=== PATIENT | female | born 1985 | race Caucasian/White ===

== ENCOUNTER 2016-06-25 19:13 | Emergency (ER) | payer OTHER ==
[~2016-06-25] VITALS: Ht 167.6 cm; Wt 70.6 kg
[~2016-06-25 19:13] MED LIST: CALCARB 600 W-1 EACH PO; CALCIUM500 M4 PO; CLINDAMYCIN HC300 MG PO; ENDOCET 5-3251 EACH PO; FLAGYL500 MG PO; FLEXERIL10 MG PO; KEFLEX500 MG PO; LORTAB 5-325 M1 EACH PO; MELATONIN10 M1 PO; MOTRIN800 MG PO; Motrin PO; NAPROSYN500 MG PO; NO MEDS; NOHOMEMEDS; NORCO 5/3251 TABLET PO; PERCOCET 5/31 TABLET PO; PRENATAL COMPL1 EACH PO; TRAMADOL HCL50 MG PO; VITAMIN C1000 MG PO; ZOFRAN ODT4 MG PO
[2016-06-25] MEDS ORDERED: TRAMADOL HCL50 MG PO (21:27)
[2016-06-25 21:36] VITALS: BP 140/89
== END 2016-06-25 21:36 | disposition home or self-care (01) ==
LOC: EME 19:13
DX: S06.0X9A Concussion with loss of consciousness of unspecified duration, initial encounter (principal); S20.211A Contusion of right front wall of thorax, initial encounter; M54.2 Cervicalgia; Y08.89XA Assault by other specified means, initial encounter; Y07.03 Male partner, perpetrator of maltreatment and neglect; Z87.891 Personal history of nicotine dependence
CPT/HCPCS: 70450; 71020; 72040; 99281; 99283

== ENCOUNTER 2016-08-28 12:23 | Emergency (ER) | payer OTHER ==
[~2016-08-28] VITALS: Ht 167.6 cm; Wt 70.1 kg
[2016-08-28] MEDS ORDERED: FLONASE ALLERG9.9 ML BOTH NARES (14:31)
[2016-08-28] MEDS ORDERED: ZYRTEC10 M3 PO (14:31)
[2016-08-28 14:55] VITALS: BP 138/88
== END 2016-08-28 15:03 | disposition home or self-care (01) ==
LOC: EME 12:23
DX: G43.909 Migraine, unspecified, not intractable, without status migrainosus (principal); H73.893 Other specified disorders of tympanic membrane, bilateral; J30.9 Allergic rhinitis, unspecified; Q78.0 Osteogenesis imperfecta; Z96.621 Presence of right artificial elbow joint; Z96.652 Presence of left artificial knee joint; Z87.891 Personal history of nicotine dependence
CPT/HCPCS: 99281; 99284; J1200; J1885; J2765; J7030

== ENCOUNTER 2016-10-07 20:58 | Emergency (ER) | payer OTHER ==
[~2016-10-07] VITALS: Ht 165.1 cm; Wt 71.4 kg
[~2016-10-07 20:58] MED LIST changes: +FLONASE ALLERG9.9 ML BOTH NARES; +ZYRTEC10 M3 PO
[2016-10-07 23:13] VITALS: BP 148/94
== END 2016-10-07 23:15 | disposition home or self-care (01) ==
LOC: EME 20:58
PROC: 0HQEXZZ Repair Left Lower Arm Skin, External Approach (ICD-10-PCS; principal; 2016-10-07)
DX: S61.512A Laceration without foreign body of left wrist, initial encounter (principal); X99.9XXA Assault by unspecified sharp object, initial encounter; Z87.891 Personal history of nicotine dependence
CPT/HCPCS: 99281; 99284

== ENCOUNTER 2016-10-29 23:10 | Emergency (ER) | payer OTHER ==
[~2016-10-29] VITALS: Ht 167.6 cm; Wt 72.1 kg
[2016-10-30] MEDS ORDERED: NORCO 5/3251 TABLET PO (00:46)
[2016-10-30] MEDS ORDERED: CLINDAMYCIN HC150 MG PO (00:46)
[2016-10-30 00:58] VITALS: BP 120/85
== END 2016-10-30 00:59 | disposition home or self-care (01) ==
LOC: EME 23:10
DX: K04.7 Periapical abscess without sinus (principal)
CPT/HCPCS: 70487; 99281; 99284; J7040